=== PATIENT | female | born 1990 | race Caucasian/White ===

== ENCOUNTER 2021-05-18 00:25 | Emergency (ER) | payer OTHER ==
[~2021-05-18] VITALS: Ht 160 cm; Wt 64.0 kg
[2021-05-18 00:40] VITALS: BP 129/77
--- NOTE | 2021-05-18 00:45 | NUR ---
pt ambulated to lobby w/ steady gait. Pt provided w/ urine specimen cup for encouragement of urine sample.
--- NOTE | 2021-05-18 00:51 | NUR ---
Pt in chair for lab draw at this time.
[2021-05-18 00:59] LABS: BASOPHILS % (AUTO) 0.2 % (0.0-2.0); EOSINOPHILS # (AUTO) 0.2 K/uL (0-0.4); EOSINOPHILS % (AUTO) 1.5 % (0.0-4.0); HEMOGLOBIN 13.4 g/dL (12.0-16.0); LYMPHOCYTES # (AUTO) 2.5 K/uL (2.5-16.5); LYMPHOCYTES % (AUTO) 20.4 % (20.5-51.1); MEAN CORPUSCULAR HEMOGLOBIN 32 pg (27-31); MEAN CORPUSCULAR HGB CONC 34 g/dL (33-37); MEAN CORPUSCULAR VOLUME 92.3 fL (80-94); MONOCYTES # (AUTO) 0.9 K/uL (0.8-1.0); MONOCYTES % (AUTO) 7.3 % (1.7-9.3); NEUTROPHILS # (AUTO) 8.6 K/uL (1.8-7.7); NEUTROPHILS % (AUTO) 70.6 % (42.2-75.2); PLATELET COUNT (AUTO) 292 K/uL (140-450); RED BLOOD CELL COUNT(AUTO) 4.23 MIL/uL (4.20-5.40); WHITE BLOOD COUNT (AUTO) 12.1 K/uL (4.8-10.8)
[2021-05-18] MEDS ORDERED: TETRACAINE HCL/PF 0.5% OPTH 4 ML BTL ONE (01:15)
[2021-05-18 01:26] LABS: ALBUMIN 3.3 g/dL (3.4-5.0); CARBON DIOXIDE 24.9 mmol/L (21-32); CREATININE 0.5 mg/dL (0.6-1.3); POTASSIUM 3.9 mmol/L (3.5-5.1); TOTAL BILIRUBIN 0.2 mg/dL (0.0-1.0)
[2021-05-18] MEDS ORDERED: GENTAMICIN OP 0.3% 15 MG/5 ML BTL ONE (01:30)
--- NOTE | 2021-05-18 01:38 | NUR ---
placed in gown, conneceted to vs monitor.
--- NOTE | 2021-05-18 01:42 | NUR ---
Dr. Shrestha with pt for MSE
[2021-05-18] MEDS ORDERED: ONDANSETRON 4 MG ODT PO ONE (02:00)
[2021-05-18] MEDS ORDERED: NACL 0.9% 1,000 ML IV ONE (02:00)
[2021-05-18] MEDS ORDERED: ACETAMINOPHEN EXTRA STRENGTH 500 MG TAB PO ONE (02:00)
[2021-05-18 02:14] LABS: APPEARANCE,URINE CLEAR (CLEAR); BILIRUBIN,URINE NEGATIVE (NEGATIVE); BLOOD, URINE TRACE-I (NEGATIVE); COLOR,URINE YELLOW (YELLOW); LEUKOCYTE ESTERASE ,URINE 1+ (NEGATIVE); NITRITE, URINE NEGATIVE (NEGATIVE); UGLUCOSE NEGATIVE (NEGATIVE)
[2021-05-18 02:22] LABS: RBC,URINE 0-5 /HPF (0-5)
[2021-05-18 02:28] LABS: BARBITURATE, URINE NEGATIVE ng/ml (NEG <=200); BENZODIAZEPINE, URINE NEGATIVE ng/mL (NEG <=200); CANNABINOID, URINE NEGATIVE ng/mL (NEG <=50); COCAINE, URINE NEGATIVE ng/mL (NEG <=300); OPIATE, URINE NEGATIVE ng/mL (NEG <=2000); PHENCYCLIDINE SCREEN,URINE NEGATIVE ng/mL (NEG <=25)
[2021-05-18] MEDS ORDERED: cephALEXin 500 MG CAP PO ONE (02:40)
--- NOTE | 2021-05-18 02:47 | NUR ---
US at bedside
[2021-05-18 03:35] VITALS: BP 111/56
[2021-05-18] MEDS ORDERED: CEPH-588 PO (03:43)
--- NOTE | 2021-05-18 04:09 | NUR ---
d/c with VSS. d/c education given. opportunity to ask questions given and answered. rx of keflex given. IV site removed, bleeding controlled with sterile gauze and reinforced with tape.
[2021-05-18] MEDS ORDERED: FAMO-90 PO (05:10)
== END 2021-05-18 04:09 | disposition home or self-care (01) ==
LOC: MED 00:25
DX: O23.41 Unspecified infection of urinary tract in pregnancy, first trimester (principal); O20.0 Threatened abortion; Z3A.14 14 weeks gestation of pregnancy
CPT/HCPCS: 36415; 76805; 80053; 80305; 81001; 83690; 84702; 85025; 86900; 86901; 87086; 96360; 99284; G0482; J7030